=== PATIENT | male | born 1940 | race Two or more races ===

== ENCOUNTER 2022-06-01 11:06 | Emergency (ER) | payer MEDICARE, OTHER ==
[~2022-06-01] VITALS: Ht 170.2 cm; Wt 70.0 kg
[2022-06-01 13:21] VITALS: BP 135/71
== END 2022-06-01 14:42 | disposition home or self-care (01) ==
LOC: ER 11:06
DX: S01.111A Laceration without foreign body of right eyelid and periocular area, initial encounter (principal); W22.8XXA Striking against or struck by other objects, initial encounter; Y93.89 Activity, other specified; Y92.89 Other specified places as the place of occurrence of the external cause; Y99.8 Other external cause status
CPT/HCPCS: 12011